=== PATIENT | female | born 1945 | race Caucasian/White ===

== ENCOUNTER 2022-01-21 16:24 | Emergency (ER) | payer OTHER, MEDICARE ==
[2022-01-21 16:52] VITALS: BP 99/74; PULSE 50; TEMP 98.8; BMI 19.8
== END 2022-01-21 16:58 | disposition home or self-care (01) ==
LOC: FER 16:24
DX: T63.484A Toxic effect of venom of other arthropod, undetermined, initial encounter (principal)
CPT/HCPCS: 99281-25